=== PATIENT | male | born 1955 | race African-American/Black ===

== ENCOUNTER → 2016-04-05 | Outpatient (CLI) | payer OTHER ==
--- NOTE | 2016-04-05 09:45 | MR ---
MRI of the Lumbar Spine (Without Contrast) at 720 hours Clinical Indications: Low back pain, M51.36. M54. 5. Previous lumbar surgery. Technique: Sagittal and axial T1 and T2 and sagittal STIR MR sequences of the lumbar spine without co ntrast. Axial imaging from T12-S1. Findings: Lumbar vertebral bodies are of normal height without compression fractures. Conus medulla ris appears normal and ends at L1. T11-T12: Sagittal images demonstrate mild degenerative disk disease with ventral osteophytes. No disk herniation. Suggestion of bilateral facet arthropathy resulting in [id number] bilateral neural foraminal stenosis. No cord compression. T12-L1: Mild bilateral facet arthropathy. No disk herniation or stenosis. L1-L2: No disk herniation or stenosis. L2-L3: No disk herniation or stenosis. L3-L4: Mild degenerative disk disease, circumferential disk bulge, mild bilateral facet arthropathy, and minimal retrolisthesis resulting in mild central canal stenosis and mild bilateral neural foramin al stenosis. L4-L5: Mild degenerative disk disease, circumferential disk bulge and mild bilateral facet arthropath y resulting in mild central canal stenosis, minimal retrolisthesis, and [id number] bilateral ne ural foraminal stenosis. L5-S1: Mild degenerative disk disease, moderate bilateral facet arthropathy, and a left paramedian 5 mm disk herniation versus granulation tissue, resulting in dorsal displacement of the left S1 nerve r oot, moderate left lateral recess stenosis, mild central canal stenosis, and moderate to severe bilat eral neural foraminal stenosis. Previous left laminectomy. Impression: 1. L5-S1: Moderate to severe bilateral neural foraminal stenosis, moderate left lateral recess stenos is, and mild central canal stenosis secondary to combination of moderate bilateral facet arthropathy, mild degenerative disk disease, and left paramedian disk herniation versus granulation tissue, resul ting in dorsal displacement of the left S1 nerve root. 2. Recommend MRI of the lumbar spine with contrast enhancement to further evaluate the left L5-S1 dis k herniation versus granulation tissue. 3. Please see above findings at specific disk levels.
== END ==
LOC: FIMAGING 06:51
DX: M48.07 Spinal stenosis, lumbosacral region (principal); M51.36 Other intervertebral disc degeneration, lumbar region; M46.96 Unspecified inflammatory spondylopathy, lumbar region

== ENCOUNTER → 2016-09-06 | Outpatient (CLI) | payer OTHER, MEDICAID | LOC: FIMAGING 09:57 | DX: M50.323 Other cervical disc degeneration at C6-C7 level (principal); M48.02 Spinal stenosis, cervical region; M46.92 Unspecified inflammatory spondylopathy, cervical region ==

== ENCOUNTER 2016-10-09 20:53 | Emergency (ER) | payer OTHER, MEDICAID ==
--- NOTE | 2016-10-09 22:13 | EDPHY ---
H & P Stated Complaint: stung by wasp yesterday to r lateral knee thigh Time Seen by Provider: 10/09/16 22:05 HPI/ROS: Chief Complaint: Insect bite yesterday, right leg pain HPI: 60-year-old male was stuck by a bee or wasp yesterday afternoon in his right lateral lower thigh. Patient is having increasing swelling and redness or warmth since that time. It is painful and also warm to the touch. Does have a history of reactions to insects in the past which he has had swelling but not the redness. Denies any fevers or chills. No streaking up his leg. No headaches. No nausea or vomiting. ROS: 10 point Review of Systems is negative except as noted in the HPI. PMH: Hypertension Social History: No smoking, no alcohol, no recreational drug use Family History: non-contributory Physical Exam: Gen: Awake, Alert, No Distress HEENT: Nose: no rhinorrhea Eyes: PERRLA, EOMI Mouth: Moist mucosa Neck: Supple, no JVD Chest: nontender, lungs clear to auscultation Heart: S1, S2 normal, no murmur Abd: Soft, non-tender, no guarding Back: no CVA tenderness, no midline tenderness Ext: no edema, right thigh there is erythema to the lateral aspect of his right lower thigh which is warm to the touch. There is no induration but there is no fluctuance. No bony tenderness. Skin: no rash Neuro: CN II-XII intact, Sensation grossly intact, Strength 5/5 in bilateral upper and lower extremities - Personal History Current Tetanus/Diphtheria Vaccine: Yes Current Tetanus Diphtheria and Acellular Pertussis (TDAP): Yes - Medical/Surgical History Hx Asthma: No Hx Chronic Respiratory Disease: No Hx Diabetes: No Hx Cardiac Disease: No Hx Renal Disease: No Hx Cirrhosis: No Hx Alcoholism: No Hx HIV/AIDS: No Hx Splenectomy or Spleen Trauma: No Other PMH: l5 s1 surgery. neck fusion. appy - Social History Smoking Status: Current some day smoker Constitutional: Initial Vital Signs Temperature (C) 36.5 C 10/09/16 21:04 Heart Rate 75 10/09/16 21:04 Respiratory Rate 18 10/09/16 21:04 Blood Pressure 110/56 L 10/09/16 21:04 O2 Sat (%) 95 10/09/16 21:04 O2 Delivery Mode Room Air Allergies/Adverse Reactions: No Known Allergies Allergy (Unverified 03/22/14 13:42) Home Medications: Medication Instructions Recorded Amlodipine Besylate 10/09/16 Cephalexin [Keflex (*)] 500 mg PO Q6H #40 cap 10/09/16 Gabapentin Enacarbil 10/09/16 HCTZ (*) 10/09/16 Losartan Potassium 10/09/16 Sulfamethox/Tmp 800/160 mg 1 tab PO BID #20 tab 10/09/16 [Bactrim Ds] Valium 10/09/16 traMADol 10/09/16 Medical Decision Making ED Course/Re-evaluation: 60-year-old male with cellulitis of his right leg secondary to an insect bite. Will start him on Keflex and Bactrim. He will follow up with primary care physician in 2-3 days for re-evaluation. He has been instructed that if the redness continues to spread by morning he should return to the emergency department for IV antibiotics. His pain is controlled with his normal pain regimen. Departure - Departure Disposition: Home, Routine, Self-Care Clinical Impression: Cellulitis Condition: Good Instructions: Cellulitis (ED), Cephalexin (By mouth), Sulfamethoxazole/ Trimethoprim (By mouth) Additional Instructions: If the redness continues to spread by morning return to the emergency department for intravenous antibiotics. Follow up with your primary care doc and 2-3 days for further evaluation. Please make sure to take her full course of antibiotics. Referrals: Wade Tejeda MD [Primary Care Provider] - As per Instructions Prescriptions: Cephalexin [Keflex (*)] 500 mg PO Q6H #40 cap Sulfamethox/Tmp 800/160 mg [Bactrim Ds] 1 tab PO BID #20 tab
[2016-10-09] MEDS ORDERED: CEPHALEXIN 500MG PREPACK#4 BTL TAKEHOME ONE (22:14)
[2016-10-09] MEDS ORDERED: SULFAMET/TMP DS PREPACK#2 BTL TAKEHOME ONE (22:14)
[2016-10-09] MEDS ORDERED: CEPHALEXIN 500 MG CAP PO ONE ×2 (22:25)
[2016-10-09 23:59] VITALS: BP 112/60; PULSE 78; RESP 16; TEMP 97.9; O2SAT 97
== END 2016-10-09 22:43 | disposition home or self-care (01) ==
DX: L03.115 Cellulitis of right lower limb (principal); I10 Essential (primary) hypertension; F17.200 Nicotine dependence, unspecified, uncomplicated

== ENCOUNTER 2017-06-05 22:36 | Emergency (ER) | payer OTHER, MEDICAID ==
--- NOTE | 2017-06-05 22:38 | EDPHY ---
H & P Time Seen by Provider: 06/05/17 22:55 HPI/ROS: HPI CHIEF COMPLAINT: Fall, syncope, chronic neck and chronic back pain. HISTORY OF PRESENT ILLNESS: This patient is 61-year-old male who presents emergency room by EMS he presents after he had a syncopal episode or fall inside of his house. Patient states that he had a few beers earlier in the evening as well as took his narcotic pain medicine he went outside to smoke a cigarette he states that he took "two Drags" and then began feeling lightheaded he went inside and then had a syncopal episode inside of his house. He states he fell down on the hardwood floors with head strike. Complains of left posterior headache. He does complain of chronic neck and back pain. He states his pain is not any worse than normal. He denies focal weakness or numbness or tingling. Denies chest pain or shortness of breath. Past Medical History: Chronic neck and back pain, hypertension Past Surgical History: Cervical fusion Social History: Smokes tobacco daily, occasional alcohol use, chronic opiate use. Family History: Noncontributory ROS REVIEW OF SYSTEMS: A comprehensive 10 point review of systems is otherwise negative aside from elements mentioned in the history of present illness. Exam Constitutional appears well nontoxic no acute distress, triage nursing summary reviewed, vital signs reviewed, awake/alert. Eyes normal conjunctivae and sclera, EOMI, PERRLA. HENT head/neck: Patient arrives by EMS in a rigid cervical collar, nose no obvious signs of head or neck trauma on exam. No midline cervical spine pain or step-offs, moist mucus membranes, no epistaxis, neck supple/ no meningismus, no raccoon eyes. Respiratory clear to auscultation bilaterally, normal breath sounds, no respiratory distress, no wheezing. Cardiovascular rate normal, regular rhythm, no murmur, no edema, distal pulses normal. Gastrointestinal soft, non-tender, no rebound, no guarding, normal bowel sounds, no distension, no pulsatile mass. Genitourinary no CVA tenderness. Musculoskeletal no midline vertebral tenderness, full range of motion, no calf swelling, no tenderness of extremities, no meningismus, good pulses, neurovascularly intact. Skin pink, warm, & dry, no rash, skin atraumatic. Neurologic awake, alert and oriented x 3, AAOx3, moves all 4 extremities equally, motor intact, sensory intact, CN II-XII intact, normal cerebellar, normal vision, normal speech. Psychiatric normal mood/affect. Heme/Lymph/Immune no lymphadenopathy. Differential Diagnosis: Includes but is not limited to in a particular order vasovagal syncope, orthostatic syncope, dehydration, electrolyte abnormality, alcohol intoxication, combination of alcohol, opioids, marijuana leading to syncope, cardiac arrhythmia Medical Decision Making: Plan for this patient full property assessment monitor, IV establishment blood draw, IV fluid bolus 1 L normal saline, EKG, troponin, alcohol level and re-evaluate. Re-evaluation: EKG interpretation by me on record in [facility] system. Impression time of EKG 2300, sinus rhythm rate of [address] elevation no ST depression no signs of cardiac arrhythmia. When I compare this to the old EKG dated 11/25/2014 it is unchanged 1215 CT scan head and neck without contrast for trauma negative for acute traumatic injury. No bleed. No skull fracture. CT scans, chest x-ray, EKG and blood work were unremarkable. He has been on the property assessment monitor here in emergency room without any signs of cardiac abnormality. Currently his heart rate is 74, blood pressure 122/75, pulse ox 97 % on room air. I was able to remove his cervical collar as he has no midline cervical spine pain. His alcohol level was noted to be 99. He is resting comfortably feels much better. Most likely cause of syncope is combination of alcohol this evening, dehydration, and taking opioids. I recommend he refrain from doing this on outpatient basis. I recommend he stays well hydrated. Additionally return emergency room if there is worsening symptoms questions or concerns includes chest pain, shortness of breath, passing out. Source: Patient, EMS - Medical/Surgical History Hx Asthma: No Hx Chronic Respiratory Disease: No Hx Diabetes: No Hx Cardiac Disease: No Hx Renal Disease: No Hx Cirrhosis: No Hx Alcoholism: No Hx HIV/AIDS: No Hx Splenectomy or Spleen Trauma: No Other PMH: l5 s1 surgery. neck fusion. appy - Social History Smoking Status: Current some day smoker Constitutional: Initial Vital Signs Temperature (C) 36.6 C 06/05/17 22:53 Heart Rate 67 06/05/17 22:53 Respiratory Rate 18 06/05/17 22:53 Blood Pressure 111/78 06/05/17 22:53 O2 Sat (%) 97 06/05/17 22:53 O2 Delivery Mode Room Air Allergies/Adverse Reactions: No Known Allergies Allergy (Unverified 03/22/14 13:42) Home Medications: Medication Instructions Recorded Amlodipine Besylate 10/09/16 Gabapentin Enacarbil 10/09/16 Losartan Potassium 10/09/16 Valium 10/09/16 Medical Decision Making - Diagnostics Imaging Results: Imaging Impressions Cervical Spine CT 06/05/17 22:43 Impression: 1. No acute fracture or soft tissue swelling. 2. Well-seated ACDF extending from C3 to C5. 3. If the patient has persistent pain or neurologic deficits, consider cervical spine MRI. Findings discussed with Emergency Department physician, Wade Riggins MD at 06/06/2017 00:10. Head CT 06/05/17 22:43 Impression: Negative. No acute fracture or evidence of acute intracranial injury. Findings discussed with Emergency Department physician, Wade Riggins MD at 06/06/2017 00:10. Chest X-Ray 06/05/17 22:44 Impression: Clear lungs. No acute process. - Data Points Laboratory Results: Laboratory Results 06/05/17 22:40 06/05/17 22:40 06/05/17 06/05/17 22:40 22:40 WBC 6.61 10^3/uL 10^3/uL (3.80-9.50) RBC 4.35 10^6/uL L 10^6/uL (4.40-6.38) Hgb 13.6 g/dL L g/dL (13.7-17.5) Hct 42.3 % % (40.0-51.0) MCV 97.2 fL fL (81.5-99.8) MCH 31.3 pg pg (27.9-34.1) MCHC 32.2 g/dL L g/dL (32.4-36.7) RDW 13.5 % % (11.5-15.2) Plt Count 287 10^3/uL 10^3/uL (150-400) MPV 9.9 fL fL (8.7-11.7) Neut % (Auto) 35.7 % L % (39.3-74.2) Lymph % (Auto) 53.1 % H % (15.0-45.0) [place] % (Auto) 8.5 % % (4.5-13.0) Eos % (Auto) 2.0 % % (0.6-7.6) Baso % (Auto) 0.5 % % (0.3-1.7) Nucleat RBC Rel Count 0.0 % % (0.0-0.2) Absolute Neuts (auto) 2.37 10^3/uL 10^3/uL (1.70-6.50) Absolute Lymphs (auto) 3.51 10^3/uL H 10^3/uL (1.00-3.00) Absolute Monos (auto) 0.56 10^3/uL 10^3/uL (0.30-0.80) Absolute Eos (auto) 0.13 10^3/uL 10^3/uL (0.03-0.40) Absolute Basos (auto) 0.03 10^3/uL 10^3/uL (0.02-0.10) Absolute Nucleated RBC 0.00 10^3/uL 10^3/uL (0-0.01) Immature Gran % 0.2 % % (0.0-1.1) Immature Gran # 0.01 10^3/uL 10^3/uL (0.00-0.10) Sodium 141 mEq/L mEq/L (135-145) Potassium 4.2 mEq/L mEq/L (3.5-5.2) Chloride 105 mEq/L mEq/L (97-110) Carbon Dioxide 26 mEq/l mEq/l (22-31) Anion Gap 10 mEq/L mEq/L (8-16) BUN 17 mg/dL mg/dL (7-23) Creatinine 1.3 mg/dL mg/dL (0.7-1.3) Estimated GFR 56 Glucose 82 mg/dL mg/dL (70-100) Calcium 9.6 mg/dL mg/dL (8.5-10.4) Total Bilirubin 0.4 mg/dL mg/dL (0.1-1.4) AST 32 IU/L IU/L (17-59) ALT 37 IU/L IU/L (21-72) Alkaline Phosphatase 48 IU/L IU/L (38-126) Troponin I < 0.012 ng/mL ng/mL (0.000-0.034) Total Protein 7.4 g/dL g/dL (6.3-8.2) Albumin 4.4 g/dL g/dL (3.5-5.0) Ethyl Alcohol 97 mg/dL H mg/dL (0-10) Medications Given: Discontinued Medications Sodium Chloride (Ns) 1,000 mls @ 0 mls/hr IV ONCE ONE PRN Reason: Wide Open Stop: 06/05/17 22:46 Last Admin: 06/05/17 23:23 Dose: Not Given Ketorolac Tromethamine (Toradol) 15 mg IVP EDNOW ONE Stop: 06/05/17 23:17 Last Admin: 06/05/17 23:22 Dose: 15 mg Departure - Departure Disposition: Home, Routine, Self-Care Clinical Impression: Dehydration Alcohol intoxication Qualifiers: Complication of substance-induced condition: uncomplicated Qualified Code(s): F10.920 - Alcohol use, unspecified with intoxication, uncomplicated Condition: Good Instructions: Dehydration (ED), Alcohol Intoxication (ED) Additional Instructions: 1. Stay well-hydrated drink lots of fluids. 2. Return emergency room if you have worsening symptoms questions or concerns. This includes passing out. Referrals: NONE *PRIMARY CARE P,. [Primary Care Provider] - As per Instructions
[2017-06-05] MEDS ORDERED: NS 1,000 ML IV ONE (22:45)
[2017-06-05 22:55] VITALS: RESP 18
[2017-06-05 22:55] LABS: PLATELET COUNT 287 10^3/uL (150-400)
--- NOTE | 2017-06-05 23:02 | CPEKG ---
Heart Rate: 61 RR Interval: 984 P-R Interval: 172 QRSD Interval: 98 QT Interval: 416 QTC Interval: 419 P [place]: 74 QRS [place]: 0 T Wave [place]: 31 EKG Severity - ABNORMAL ECG - EKG Impression: SINUS RHYTHM EKG Impression: PROBABLE LEFT ATRIAL ABNORMALITY Electronically Signed By: Venkat Shepard 11-Jun-2017 11:36:37
[2017-06-05] MEDS ORDERED: KETOROLAC 15 MG/1 ML SDV IVP ONE (23:16)
[2017-06-05 23:53] VITALS: O2SAT 95
[2017-06-06 01:17] VITALS: BP 122/75; PULSE 67; TEMP 97.7
== END 2017-06-06 01:26 | disposition home or self-care (01) ==
LOC: EDUNIT#
DX: E86.0 Dehydration (principal); F10.920 Alcohol use, unspecified with intoxication, uncomplicated; I10 Essential (primary) hypertension; F17.200 Nicotine dependence, unspecified, uncomplicated; W19.XXXA Unspecified fall, initial encounter
CPT/HCPCS: 70450; 71045; 72125; 93005; 96374; 99285; J1885; G0480

== ENCOUNTER → 2018-05-01 | Outpatient (CLI) | payer MEDICAID, OTHER | LOC: FIMAGING 09:15 | PROVIDERS: ATTEND Internal Medicine | DX: Z12.2 Encounter for screening for malignant neoplasm of respiratory organs (principal); F17.200 Nicotine dependence, unspecified, uncomplicated; I25.10 Atherosclerotic heart disease of native coronary artery without angina pectoris ==

== ENCOUNTER → 2018-06-10 | Outpatient (CLI) | payer OTHER | LOC: FIMAGING 16:12 | PROVIDERS: ATTEND Internal Medicine | DX: J06.9 Acute upper respiratory infection, unspecified (principal); J15.9 Unspecified bacterial pneumonia; R05 Cough ==